=== PATIENT | female | born 1965 | race Caucasian/White ===

== ENCOUNTER 2016-09-17 06:50 | Day surgery (SDC) | payer OTHER ==
[2016-09-16 11:33] LABS: BASOPHILS 0.6 %; BASOPHILS ABSOLUTE 0.04 10/3/uL (0.0-0.16); EOSINOPHILS 1.7 %; EOSINOPHILS ABSOLUTE 0.12 10/3/uL (0.0-0.53); HEMATOCRIT 37.4 % (36.0-48.0); HEMOGLOBIN 12.1 g/dL (12.0-16.0); IMMATURE GRANULOCYTES 0.3 %; IMMATURE GRANULOCYTES ABSOLUTE 0.02 10/3/uL (0.0-0.11); LYMPHOCYTES 31.9 %; LYMPHOCYTES ABSOLUTE 2.21 10/3/uL (0.67-4.30); MEAN CORPUS HGB CONC 32.4 g/dL (32.0-36.0); MEAN CORPUSCULAR HEMOGLOB 28.7 pg (26.0-34.0); MEAN CORPUSCULAR VOLUME 88.8 fL (80-100); MEAN PLATELET VOLUME 9.6 fL (9.2-13.0); MONOCYTES 6.2 %; MONOCYTES ABSOLUTE 0.43 10/3/uL (0.21-1.20); NEUTROPHILS 59.3 %; NEUTROPHILS ABSOLUTE 4.11 10/3/uL (2.02-8.40); PLATELET COUNT 287 10/3/uL (150-400); RBC DISTRIBUTION WIDTH 13.9 % (12.0-16.0); RED CELL COUNT 4.21 10/6/uL (4.0-5.6); WHITE BLOOD CELLS 6.9 10/3/uL (4.5-10.5)
[2016-09-16 11:34] LABS: MANUAL DIFF NO %
[2016-09-16 11:47] LABS: PARTIAL THROMBO TIME 31.5 SEC (22.5-37.2)
[2016-09-16 11:54] LABS: CALCIUM, SERUM 9.2 MG/DL (8.5-10.4); CHLORIDE, SERUM 106 MMOL/L (96-112); CO2 (CARBON DIOXIDE) 28 MMOL/L (24-34); GFR AFRICAN AMERICAN 76 ML/MIN (>=60); GFR NON AFRICAN AMERICAN 65 ML/MIN (>=60); GLUCOSE, SERUM 113 MG/DL (60-99); POTASSIUM, SERUM 3.6 MMOL/L (3.5-5.3); SODIUM, SERUM 142 MMOL/L (135-148)
[2016-09-16 11:55] LABS: BUN (BLOOD UREA NITROGEN) 20 MG/DL (6-23)
--- NOTE | ~2016-09-17 | OP ---
Record Of Operation [facility] [address] [place]. [address] NAME: ZEEANT URIAS : 63 STATUS : [facility]#: [id number] AGE: 50 ADM/REG DATE : 09/17/16 MR#: [id number] REPORT SERV DATE: 09/18/16 DICTATED BY: LIBRADO BENITES DATE: 09/18/16 REPORT STATUS : Draft TRANSCRIBED BY: JELANI DATE: 09/18/16 DATE OF PROCEDURE: 09/17/2016 PREOPERATIVE DIAGNOSES: Bilateral nasal polyposis and chronic rhinosinusitis. POSTOPERATIVE DIAGNOSES: Bilateral nasal polyposis and chronic rhinosinusitis. OPERATIVE PROCEDURES PERFORMED: 1. Bilateral endoscopic frontal sinusotomy. 2. Bilateral endoscopic ethmoidectomy. 3. Bilateral sphenoidotomies with removal of tissue. 4. Bilateral maxillary antrostomies with removal of tissue. 5. Bilateral nasal polyposis. 6. Stereotactic surgical navigation. INDICATIONS AND SIGNIFICANT HISTORY: The patient is a 50-year-old female with a significant longstanding history of chronic rhinosinusitis. She has had nasal polyposis in the past and has undergone surgical therapy in the past as well. She has had return of nasal polyposis and return of obstruction of her sinuses. OPERATIVE PROCEDURE AND FINDINGS: After informed consent was obtained, the patient was brought to the operating room and placed on the operating table in the supine position, at which point, general endotracheal anesthesia was induced by the Anesthesia Service and the stereotactic surgical navigation equipment was set up to monitor landmarks and extent of dissection. The right and left nares were decongested with topical Afrin-soaked pledgets and the axilla of the middle turbinates were injected with approximately 2-3 mL of 2% lidocaine and 1:100,000 of epinephrine. Dissection began on the right side, where a suction shaver was used to remove heavy amount of polyposis in the middle meatus region exposing a heavy amount of purulence in this middle meatus region and emanating from the frontal recess. Frontal recess was cannulated with a lighted guidewire and light was visualized in the forehead. A serial dilation was then performed of the frontal sinus, again with copious, thick, mucopurulent secretions. The irrigation also was performed with a curved olive-tip suction inserted into the frontal recess. Attention was then turned toward the right ethmoid bed where residual ethmoid cell lozoya were taken down using a suction shaver and sphenoid ethmoid recess was exposed. The right sphenoid sinus was then entered in the inferomedial portion of the sinus and sinusotomy was enlarged using a shaver and a Kerrison rongeur. Attention was then turned toward the right maxillary sinus, where a maxillary antrostomy was enlarged using a suction shaver and straight and backbiting forceps. Heavy amount of polyposis was present within the maxillary sinus. This was removed with a straight and curved suction sanam. Attention was turned toward the left nasal cavity where in a similar finding heavy nasal polyposis was noted in the middle meatus region. This was removed with a straight suction shaver. A sphenoidotomy along with evacuation of the tissue and debris was performed. Ethmoidectomy was completed and exposure of the frontal recess was accomplished. The frontal recess was then cannulated with a lighted guidewire and transdermal illumination was noted. Serial dilation provided in the large frontal recess and bone was removed at the region of the agger nasi cell. Also, polyp was Record Of Operation [address] [address] NAME: EZENAT URIAS : 63 STATUS : [facility] PAT#: [id number] AGE: 50 ADM/REG DATE : 09/17/16 MR#: [id number] REPORT SERV DATE: 09/18/16 DICTATED BY: LIBRADO BENITES DATE: 09/18/16 REPORT STATUS : Draft TRANSCRIBED BY: MODL DATE: 09/18/16 removed in the region of the frontal sinus to improve frontal sinus drainage. Maxillary antrostomy was created and enlarged using a straight and suction sanam and heavy polyposis was removed from the left maxillary sinus. All sinuses were copiously irrigated. Four Propel sinus stents were placed, two small frontal sinus stents were placed into the respective frontal recesses and two regular size Propel sinus stents were placed into the ethmoid beds bilaterally. The patient was then turned back toward anesthesia, aroused from anesthesia, and taken to the postanesthesia care unit in satisfactory condition. COMPLICATIONS: None. ESTIMATED BLOOD LOSS: Less than 100 mL. IV FLUIDS: Per Anesthesia. RIDDHI/JELANI Librado Benites M.D. / [id number] CC: Destiny Gaxiola M.D.
[~2016-09-17 06:50] MED LIST: ALLEGRA180 PO; BEN25 PO; CELEXA20 PO; FLEX PO; HYZAAR 100/25 T1 TAB PO; INDE120LA PO; LEVOTHYROXIN125 MCG PO; LYRICA; MELA3 PO; MOBIC15 MG PO; NEUR300 PO; PRAVAC PO; SINGULAIR1 PO; TRAZ100 PO; ULTRAM50 PO; V5 PO; Z100 PO
== END 2016-09-17 13:13 | disposition home or self-care (01) ==
LOC: SDC 06:50
PROVIDERS: Otolaryngology
PROC: 099Q4ZZ Drainage of Right Maxillary Sinus, Percutaneous Endoscopic Approach (ICD-10-PCS; 2016-09-17)
PROC: 09BT4ZZ Excision of Left Frontal Sinus, Percutaneous Endoscopic Approach (ICD-10-PCS; 2016-09-17)
PROC: 09BS4ZZ Excision of Right Frontal Sinus, Percutaneous Endoscopic Approach (ICD-10-PCS; 2016-09-17)
PROC: 09TV4ZZ Resection of Left Ethmoid Sinus, Percutaneous Endoscopic Approach (ICD-10-PCS; 2016-09-17)
PROC: 09TU4ZZ Resection of Right Ethmoid Sinus, Percutaneous Endoscopic Approach (ICD-10-PCS; 2016-09-17)
PROC: 09CX4ZZ Extirpation of Matter from Left Sphenoid Sinus, Percutaneous Endoscopic Approach (ICD-10-PCS; 2016-09-17)
PROC: 09CW4ZZ Extirpation of Matter from Right Sphenoid Sinus, Percutaneous Endoscopic Approach (ICD-10-PCS; 2016-09-17)
PROC: 09BK4ZX Excision of Nasal Mucosa and Soft Tissue, Percutaneous Endoscopic Approach, Diagnostic (ICD-10-PCS; 2016-09-17)
PROC: 8E09XBZ Computer Assisted Procedure of Head and Neck Region (ICD-10-PCS; principal; 2016-09-17 08:15)
PROC: 099R4ZZ Drainage of Left Maxillary Sinus, Percutaneous Endoscopic Approach (ICD-10-PCS; 2016-09-17 08:15)
DX: J32.9 Chronic sinusitis, unspecified (principal); J33.9 Nasal polyp, unspecified; I10 Essential (primary) hypertension; E03.9 Hypothyroidism, unspecified; M10.9 Gout, unspecified; E78.5 Hyperlipidemia, unspecified; G47.33 Obstructive sleep apnea (adult) (pediatric); M79.7 Fibromyalgia; E78.00 Pure hypercholesterolemia, unspecified; G43.909 Migraine, unspecified, not intractable, without status migrainosus; F41.9 Anxiety disorder, unspecified; F32.9 Major depressive disorder, single episode, unspecified; Z79.899 Other long term (current) drug therapy; Z91.040 Latex allergy status; Z88.8 Allergy status to other drugs, medicaments and biological substances; Z99.89 Dependence on other enabling machines and devices; Z98.890 Other specified postprocedural states
CPT/HCPCS: 80048; 85025; 85610; 85730; 88305; 93005; A9270-GY; C1726; C2625; J0690; J2250; J2405; J2710; J3010